=== PATIENT | female | born 1950 | race Caucasian/White ===

== ENCOUNTER 2018-10-24 08:22 | Outpatient (CLI) | payer MEDICARE, BC, SELFPAY ==
[2018-10-24 09:24] LABS: COMMENT (LAB VIEW ONLY) 15.68 mg/dL
[2018-10-24 09:37] LABS: ALT 77 U/L (12-78); AST 38 U/L (15-37); Albumin 4.1 g/dL (3.4-5.0); Alkaline Phosphatase 79 U/L (46-116); Anion Gap 8.4 mmol/L (3-11); BUN 23 mg/dL (7-18); Bilirubin, Total 0.5 mg/dL (0.2-1.0); CO2 29.6 mmol/L (21.0-32.0); CREATININE 0.79 mg/dL (0.55-1.02); Calcium 9.2 mg/dL (8.5-10.1); Calculated LDL 49 mg/dL; Chloride 103 mmol/L (98-107); Cholesterol 134 mg/dL (50-200); Glucose 100 mg/dL (70-100); HDL Cholesterol 54 mg/dL (40-60); Potassium 3.9 mmol/L (3.5-5.1); Sodium 141 mmol/L (136-145); Total Protein 7.1 g/dL (6.4-8.2); Triglyceride 155 mg/dL (30-150)
== END 2018-10-24 08:42 ==
PROVIDERS: PCP Nurse Practitioner Family; Visit Provider Nurse Practitioner Family
DX: E11.9 Type 2 diabetes mellitus without complications (principal); E78.5 Hyperlipidemia, unspecified; I10 Essential (primary) hypertension
CPT/HCPCS: 36415; 80053; 80061; 83721; 82043; 82570

== ENCOUNTER 2019-05-28 16:03 | Outpatient (CLI) | payer MEDICARE, BC, SELFPAY ==
--- NOTE | 2019-05-28 15:00 | DI.RAD_ITS ---
EXAM: XR SACRUM COCCYX CLINICAL HISTORY: Pain s/p fall landing on buttocks M53.3 SACROCOCCYGEAL DISORDERS TECHNIQUE: COMPARISON: LUMBAR SPINE COMPLETE from 04/11/2013 FINDINGS: Three views were obtained. There appear to be mild degenerative changes of both hips. There is minimal hypertrophic spurring of the SI joints, the joints are otherwise well maintained. T here are marked degenerative changes of the lower lumbar spine with anterior pseudo spondylolisthesis of L4 on L5 and L5 on S1, similar to findings on prior examination of April 2013. No fracture identified. IMPRESSION:
== END 2019-05-28 16:23 ==
PROVIDERS: PCP Nurse Practitioner Family; Visit Provider Nurse Practitioner
DX: M53.3 Sacrococcygeal disorders, not elsewhere classified (principal); M47.26 Other spondylosis with radiculopathy, lumbar region; M43.16 Spondylolisthesis, lumbar region; M43.17 Spondylolisthesis, lumbosacral region
CPT/HCPCS: 72220

== ENCOUNTER 2019-10-23 03:14 | Outpatient (CLI) | payer MEDICARE, BC, SELFPAY ==
[2019-10-23 09:58] LABS: Microalb ug/mg Crea 4.2 ug/mg Cr
[2019-10-23 10:13] LABS: BUN 23 mg/dL (7-18); CREATININE 0.89 mg/dL (0.55-1.02); Calcium 9.1 mg/dL (8.5-10.1); Calculated LDL 56 mg/dL (<100); Chloride 105 mmol/L (98-107); Cholesterol 134 mg/dL (<200); Glucose 103 mg/dL (74-106); HDL Cholesterol 50 mg/dL (40-60); Potassium 3.9 mmol/L (3.5-5.1); Sodium 142 mmol/L (136-145); Triglyceride 142 mg/dL (<150)
== END 2019-10-23 03:34 ==
PROVIDERS: PCP Nurse Practitioner Family; Visit Provider Nurse Practitioner Family
DX: E11.9 Type 2 diabetes mellitus without complications (principal); E78.5 Hyperlipidemia, unspecified
CPT/HCPCS: 36415; 80048; 80061; 82043; 82570

== ENCOUNTER 2020-09-03 11:53 | Outpatient (CLI) | payer MEDICARE, BC, SELFPAY ==
--- NOTE | 2020-09-03 08:45 | DI.RAD_ITS ---
Exam(s) XR HIP RT COMPLETE AP PELVIS EXAM: XR HIP RT COMPLETE AP PELVIS CLINICAL HISTORY: right groin pain, R10.31. TECHNIQUE: 2D digital imaging was performed. COMPARISON: No exams were available for comparison FINDINGS: BONES: No acute fracture is present. No bony destructive lesion is seen. JOINTS: No dislocation present. The sacroiliac joints and symphysis pubis are unremarkable. SOFT TISSUE: Normal. IMPRESSION: Unremarkable radiographs of the right hip. Unremarkable radiographs of the pelvis. DATA REPOSITORY: RADIATION DOSE DELIVERED:
--- NOTE | 2020-09-03 08:45 | DI.RAD_ITS ---
Exam(s) XR LUMBAR SPINE COMPLETE EXAM: XR LUMBAR SPINE COMPLETE CLINICAL HISTORY: OA of L-spine, osteoporosis, M47.816, M81.0. TECHNIQUE: 2D digital imaging was performed. COMPARISON: CR LUMBAR SPINE COMPLETE from 04/11/2013 FINDINGS: There are 5 lumbar type vertebral bodies. There is stable grade 1 to grade 2 spondylolisthesis of L4 on L5. There is disc space narrowing at T12-L1, L4-L5 and L5-S1. No acute fracture or subluxation is identified. The bones are normally mineralized. Degenerative facet arthropathy is seen at L4-5 a nd L5-S1. Atherosclerosis. IMPRESSION: 1. No acute abnormality. 2. Stable spondylolisthesis of L4 on L5. 3. Degenerative changes in the lumbar spine as described. DATA REPOSITORY: RADIATION DOSE DELIVERED:
== END 2020-09-03 12:13 ==
PROVIDERS: PCP Nurse Practitioner Family; Visit Provider Nurse Practitioner
DX: M47.816 Spondylosis without myelopathy or radiculopathy, lumbar region (principal); M81.0 Age-related osteoporosis without current pathological fracture; M43.16 Spondylolisthesis, lumbar region; R10.31 Right lower quadrant pain
CPT/HCPCS: 72110; 73502

== ENCOUNTER 2020-10-15 03:35 | Outpatient (CLI) | payer MEDICARE, BC, SELFPAY ==
[2020-10-15 09:52] LABS: Abs Immature Grans 0.02 10^3/uL (0.0-0.06); Absolute Basophil Count 0.07 10^3/uL (0.0-0.2); Absolute Eosinophil Count 0.47 10^3/uL (0.0-0.7); Absolute Lymphocyte Count 1.55 10^3/uL (1.2-3.4); Absolute Monocyte Count 0.56 10^3/uL (0.1-0.8); Absolute Neutrophil Count 3.91 10^3/uL (1.2-6.7); Basophils % 1.1; Eosinophils % 7.1; HCT 44.9 % (36.0-46.0); HGB 14.9 g/dL (11.2-15.7); Immature Grans % 0.3; Lymphocytes % 23.6; MCH 29.9 pg (27.0-33.0); MCHC 33.2 % (32.0-36.0); MPV 11.7 fL (8.0-11.0); Monocytes % 8.5; Neutrophils % 59.4; Nucleated RBC 0 %; Platelet Count 164 10^3/uL (130-400); RBC 4.99 10^6/uL (3.93-5.22); RDW 12.1 % (11.7-14.6); RDW-SD 39.8 fL; WBC 6.58 10^3/uL (4.4-10.8)
[2020-10-15 10:02] LABS: Hemoglobin A1C 6.6 % (<5.7)
[2020-10-15 10:49] LABS: ALT 76 U/L (14-59); AST 34 U/L (15-37); Albumin 3.9 g/dL (3.4-5.0); Alkaline Phosphatase 66 U/L (46-116); Anion Gap 7.9 mmol/L (3-11); BUN 19 mg/dL (7-18); Bilirubin, Total 0.6 mg/dL (0.2-1.0); CO2 30.1 mmol/L (21.0-32.0); CREATININE 1.1 mg/dL (0.55-1.02); Calcium 9.5 mg/dL (8.5-10.1); Chloride 103 mmol/L (98-107); Glucose 104 mg/dL (74-106); Potassium 4.1 mmol/L (3.5-5.1); Sodium 141 mmol/L (136-145)
[2020-10-15 20:09] LABS: Calculated LDL 52 mg/dL (<100); Cholesterol 137 mg/dL (<200); HDL Cholesterol 46 mg/dL (40-60); Triglyceride 196 mg/dL (<150)
[2020-10-15 20:14] LABS: COMMENT (LAB VIEW ONLY) 30.73 mg/dL; Microalb ug/mg Crea 4.2 ug/mg Cr
[2020-10-16 14:18] LABS: Ferritin 103 ng/mL (8-252)
[2020-10-17 17:56] LABS: Iron 125 ug/dL (50-170); Total Iron Binding Capacity 349 ug/dL (250-450); Transferrin Sat 36 % (15-50)
== END 2020-10-15 03:36 | disposition home or self-care (01) ==
LOC: LBO 03:35
PROVIDERS: PCP Nurse Practitioner Family; Visit Provider Nurse Practitioner Family
DX: E11.9 Type 2 diabetes mellitus without complications (principal); E78.5 Hyperlipidemia, unspecified; Z15.81 Genetic susceptibility to multiple endocrine neoplasia [MEN]
CPT/HCPCS: 36415; 80053; 80061; 82043; 82570; 82728; 83036; 83540; 83550; 85025

== ENCOUNTER 2020-11-05 02:22 | Outpatient (CLI) | payer MEDICARE, BC, SELFPAY ==
--- NOTE | 2020-11-05 06:30 | DI.US_ITS ---
Exam(s) US ABDOMEN EXAM: US ABDOMEN CLINICAL HISTORY: elevated LFTs ?fatty liver?,R79.83 TECHNIQUE: Ultrasound of complete upper abdomen performed using standard protocol. COMPARISON: No exams were available for comparison FINDINGS: There is no ascites evident. LIVER: Liver appears somewhat hyperechoic indicating an element of steatosis. There are no discrete focal hepatic lesions identified. GALLBLADDER/BILIARY: There are no gallstones. No gallbladder wall edema nor pericholecystic fluid. The common hepatic duct isnot dilated, measuring 3-4mm at the level of beth hepatis. PANCREAS: There is a 6 x 5 millimeter cystic structure in the pancreatic body. This exhibits color-f low and is part of a serpiginous splenic artery. Therefore this does not represent an intra pancreati c cystic neoplasm. No evidence of solid mass in the pancreas. Pancreatic duct is not dilated. No oth er focal pancreatic findings. SPLEEN: The spleen is not enlarged and there are no intrasplenic lesions evident. KIDNEYS:Kidneys exhibit normal size with no evidence of solid mass, calculus, nor hydronephrosis. No cortical cysts evident. ABDOMINAL AORTA: There is no evidence of abdominal aortic aneurysm. IVC: Normal diameter where visualized. IMPRESSION: 1. No evidence of cholelithiasis nor dilatation of the biliary tree. 2. Liver is somewhat hyperechoic indicating element of steatosis. Correlation with appropriate hepat ic blood work is recommended. 3. There is no ascites. DATA REPOSITORY:
== END 2020-11-05 02:42 ==
PROVIDERS: PCP Nurse Practitioner Family; Visit Provider Nurse Practitioner Family
DX: K76.0 Fatty (change of) liver, not elsewhere classified (principal)
CPT/HCPCS: 76700

== ENCOUNTER 2020-11-17 03:13 | Outpatient (CLI) | payer MEDICARE, BC, SELFPAY ==
[2020-11-17 08:13] LABS: Prothrombin Time 10.4 sec (9.3-11.0)
[2020-11-17 20:59] LABS: Iron 107 ug/dL (50-170); Total Iron Binding Capacity 337 ug/dL (250-450); Transferrin Sat 32 % (15-50)
[2020-11-17 22:04] LABS: Ferritin 96 ng/mL (8-252)
[2020-11-18 09:03] LABS: HBs Antibody, Quant 95.7 mIU/mL (See Note); Hepatitis B Surface Ab Positive (See Note)
[2020-11-18 09:16] LABS: Hepatitis B Surface Ag Negative (Negative)
[2020-11-18 09:44] LABS: Hep A Total Ab w Rflx IgM Negative (Negative)
[2020-11-18 09:57] LABS: Hepatitis C Ab w Rflx HCV PCR Negative (Negative)
== END 2020-11-17 03:14 | disposition home or self-care (01) ==
LOC: LBO 03:13
PROVIDERS: PCP Nurse Practitioner Family; Visit Provider Nurse Practitioner Family
DX: K57.30 Diverticulosis of large intestine without perforation or abscess without bleeding (principal); R79.89 Other specified abnormal findings of blood chemistry; Z11.59 Encounter for screening for other viral diseases
CPT/HCPCS: 36415; 86706; 86709; 86803; 87340; 82728; 83540; 83550; 85610

== ENCOUNTER 2021-11-10 03:26 | Outpatient (CLI) | payer MEDICARE, SELFPAY ==
[2021-11-10 07:55] LABS: Abs Immature Grans 0.02 10^3/uL (0.0-0.06); Absolute Basophil Count 0.09 10^3/uL (0.0-0.2); Absolute Eosinophil Count 0.45 10^3/uL (0.0-0.7); Absolute Lymphocyte Count 1.87 10^3/uL (1.2-3.4); Absolute Monocyte Count 0.72 10^3/uL (0.1-0.8); Absolute Neutrophil Count 3.86 10^3/uL (1.2-6.7); Basophils % 1.3; Eosinophils % 6.4; HCT 43.5 % (36.0-46.0); HGB 14.5 g/dL (11.2-15.7); Immature Grans % 0.3; Lymphocytes % 26.7; MCH 29.8 pg (27.0-33.0); MCHC 33.3 % (32.0-36.0); MCV 89 fL (80-95); MPV 11.9 fL (8.0-11.0); Monocytes % 10.3; Platelet Count 177 10^3/uL (130-400); RBC 4.87 10^6/uL (3.93-5.22); RDW 12.3 % (11.7-14.6); RDW-SD 40.7 fL; WBC 7.01 10^3/uL (4.4-10.8)
[2021-11-10 08:09] LABS: Hemoglobin A1C 6.4 % (<5.7)
[2021-11-10 08:17] LABS: COMMENT (LAB VIEW ONLY) 141.78 mg/dL; Microalb ug/mg Crea 4.6 ug/mg Cr
[2021-11-10 08:24] LABS: ALT 68 U/L (14-59); AST 37 U/L (15-37); Albumin 3.8 g/dL (3.4-5.0); Alkaline Phosphatase 61 U/L (46-116); Anion Gap 6.7 mmol/L (3-11); BUN 20 mg/dL (7-18); Bilirubin, Total 0.6 mg/dL (0.2-1.0); CO2 31.3 mmol/L (21.0-32.0); Calcium 9.4 mg/dL (8.5-10.1); Calculated LDL 54 mg/dL (<100); Chloride 102 mmol/L (98-107); Cholesterol 147 mg/dL (<200); Estimated GFR 54.66 (mL/min/1.73m2); Glucose 122 mg/dL (74-106); HDL Cholesterol 51 mg/dL (40-60); Potassium 3.8 mmol/L (3.5-5.1); Sodium 140 mmol/L (136-145); Triglyceride 212 mg/dL (<150)
== END 2021-11-10 03:27 | disposition home or self-care (01) ==
LOC: LBO 03:27
PROVIDERS: PCP Nurse Practitioner Family; Visit Provider Nurse Practitioner Family
DX: E11.9 Type 2 diabetes mellitus without complications (principal); K76.0 Fatty (change of) liver, not elsewhere classified; E78.5 Hyperlipidemia, unspecified
CPT/HCPCS: 36415; 80053; 80061; 82043; 82570; 83036; 85025

== ENCOUNTER 2022-11-30 03:14 | Outpatient (CLI) | payer MEDICARE, SELFPAY ==
[2022-11-30 07:55] LABS: Abs Immature Grans 0.01 10^3/uL (0.0-0.06); Absolute Basophil Count 0.08 10^3/uL (0.0-0.2); Absolute Lymphocyte Count 2.22 10^3/uL (1.2-3.4); Absolute Monocyte Count 0.64 10^3/uL (0.1-0.8); Absolute Neutrophil Count 3.42 10^3/uL (1.2-6.7); Basophils % 1.2; Eosinophils % 7.3; HCT 45.4 % (36.0-46.0); HGB 15.2 g/dL (11.2-15.7); Immature Grans % 0.1; Lymphocytes % 32.3; MCH 29.6 pg (27.0-33.0); MCHC 33.5 % (32.0-36.0); MCV 89 fL (80-95); MPV 11.6 fL (8.0-11.0); Monocytes % 9.3; Neutrophils % 49.8; Platelet Count 188 10^3/uL (130-400); RBC 5.13 10^6/uL (3.93-5.22); RDW-SD 39.4 fL; WBC 6.87 10^3/uL (4.4-10.8)
[2022-11-30 08:43] LABS: COMMENT (LAB VIEW ONLY) 219.36 mg/dL; Microalb ug/mg Crea 5.3 ug/mg Cr
[2022-11-30 08:46] LABS: ALT 92 U/L (14-59); AST 42 U/L (15-37); Albumin 3.7 g/dL (3.4-5.0); Alkaline Phosphatase 78 U/L (46-116); Anion Gap 6.7 mmol/L (3-11); BUN 22 mg/dL (7-18); Bilirubin, Total 0.6 mg/dL (0.2-1.0); CO2 30.3 mmol/L (21.0-32.0); Calcium 9.1 mg/dL (8.5-10.1); Calculated LDL 53 mg/dL (<100); Chloride 104 mmol/L (98-107); Cholesterol 133 mg/dL (<200); Estimated GFR 59.86 (mL/min/1.73m2); Glucose 127 mg/dL (74-106); HDL Cholesterol 53 mg/dL (40-60); Potassium 3.7 mmol/L (3.5-5.1); Sodium 141 mmol/L (136-145); Total Protein 7.1 g/dL (6.4-8.2); Triglyceride 137 mg/dL (<150)
[2022-11-30 08:59] LABS: Hemoglobin A1C 6.4 % (<5.7)
[2022-11-30 09:06] LABS: Vitamin D 25 Total 59.7 ng/mL (30-100)
== END 2022-11-30 03:15 | disposition home or self-care (01) ==
LOC: LBO 03:14
PROVIDERS: PCP Nurse Practitioner Family; Visit Provider Nurse Practitioner Family
DX: E11.9 Type 2 diabetes mellitus without complications (principal); I10 Essential (primary) hypertension; K76.0 Fatty (change of) liver, not elsewhere classified; E78.5 Hyperlipidemia, unspecified; M81.0 Age-related osteoporosis without current pathological fracture
CPT/HCPCS: 36415; 80053; 80061; 82306; 82043; 82570; 83036; 85025

== ENCOUNTER 2023-05-09 15:10 | Outpatient (REF) | payer MEDICARE, SELFPAY | END 2023-05-09 15:11 | disposition home or self-care (01) | LOC: LBN 15:10 | PROVIDERS: PCP Nurse Practitioner Family; Visit Provider Family Medicine | DX: N13.9 Obstructive and reflux uropathy, unspecified (principal); N39.0 Urinary tract infection, site not specified | CPT/HCPCS: 87086 ==

== ENCOUNTER 2023-11-17 04:05 | Outpatient (CLI) | payer MEDICARE, SELFPAY ==
[2023-11-17 08:40] LABS: ALT 74 U/L (14-59); AST 38 U/L (15-37); Albumin 3.8 g/dL (3.4-5.0); Alkaline Phosphatase 75 U/L (46-116); Anion Gap 4.7 mmol/L (3-11); BUN 20 mg/dL (7-18); Bilirubin, Total 0.75 mg/dL (0.2-1.0); CO2 34.3 mmol/L (21.0-32.0); CREATININE 1.2 mg/dL (0.55-1.02); Calcium 9.9 mg/dL (8.5-10.1); Calculated LDL 45 mg/dL (<100); Chloride 102 mmol/L (98-107); Cholesterol 137 mg/dL (<200); Glucose 132 mg/dL (74-106); HDL Cholesterol 55 mg/dL (40-60); Potassium 3.8 mmol/L (3.5-5.1); Sodium 141 mmol/L (136-145); Total Protein 7.1 g/dL (6.4-8.2); Triglyceride 185 mg/dL (<150)
== END 2023-11-17 04:06 | disposition home or self-care (01) ==
LOC: LBO 04:05
PROVIDERS: Absent Provider Nurse Practitioner; PCP Nurse Practitioner; Referring Provider Nurse Practitioner; Visit Provider Nurse Practitioner
DX: I10 Essential (primary) hypertension (principal); E78.5 Hyperlipidemia, unspecified; E11.9 Type 2 diabetes mellitus without complications
CPT/HCPCS: 36415; 80053; 80061

== ENCOUNTER 2024-04-14 17:51 | Outpatient (REF) | payer MEDICARE, SELFPAY | END 2024-04-14 17:52 | disposition home or self-care (01) | LOC: LBN 17:51 | PROVIDERS: PCP Nurse Practitioner; Visit Provider Nurse Practitioner Family | DX: N30.00 Acute cystitis without hematuria (principal) | CPT/HCPCS: 87086 ==

== ENCOUNTER 2024-06-11 04:20 | Outpatient (CLI) | payer MEDICARE, SELFPAY ==
[2024-06-11 09:58] LABS: Anion Gap 8.6 mmol/L (3-11); BUN 24 mg/dL (7-18); CO2 28.4 mmol/L (21.0-32.0); Calcium 9.7 mg/dL (8.5-10.1); Chloride 106 mmol/L (98-107); Estimated GFR 59.12 (mL/min/1.73m2); Glucose 141 mg/dL (74-106); Sodium 143 mmol/L (136-145)
[2024-06-11 10:07] LABS: Hemoglobin A1C 6.4 % (<5.7)
== END 2024-06-11 04:21 | disposition home or self-care (01) ==
LOC: LBO 04:21
PROVIDERS: Absent Provider Nurse Practitioner; PCP Nurse Practitioner; Referring Provider Nurse Practitioner; Visit Provider Nurse Practitioner
DX: I10 Essential (primary) hypertension (principal); E11.9 Type 2 diabetes mellitus without complications
CPT/HCPCS: 36415; 80048; 83036